=== PATIENT | female | born 1975 | race Caucasian/White ===

== ENCOUNTER 2019-08-29 16:15 | Outpatient (CLI) | payer OTHER, SELFPAY ==
--- NOTE | ~2019-08-29 | CT_ITS ---
EXAMINATION: CT BRAIN W/O DATE: 08/29/2019 16:49 INDICATION: Dizziness. Imbalance. TECHNIQUE: Computed tomography (CT) of the head was performed without intravenous contrast. The dose- length product was 605.33 mGy-cm. The mA was adjusted according to patient size. Iterative reconstruction technique was employed. COMPARISON: No prior studies for comparison. FINDINGS: Normal brain parenchymal volume for age. Normal leiva-white differentiation. No acute intrac ranial hemorrhage, infarction, mass or mass effect. No ventriculomegaly or midline shift. Midline sagittal images demonstrate a normal corpus callosum, c raniovertebral junction and sella turcica. Basilar cisterns are patent. Paranasal sinuses and mastoids are pneumatized. Small mucous retention cyst left maxillary sinus. No depressed skull fractures. IMPRESSION: 1. No acute intracranial abnormality. Reviewed, dictated and finalized at location A. GRADER
== END 2019-08-29 16:16 | disposition home or self-care (01) ==
PROVIDERS: PCP Internal Medicine; Visit Provider Internal Medicine
DX: R42 Dizziness and giddiness (principal); R26.89 Other abnormalities of gait and mobility
CPT/HCPCS: 70450

== ENCOUNTER 2020-01-29 08:36 | Outpatient (CLI) | payer OTHER, SELFPAY ==
--- NOTE | 2020-01-29 08:49 | ECHO_ITS ---
Patient Info Name: Nasra Bullock Age: 44 years : 1975 Gender: Female Ht: 64 in Wt: 300 lbs BSA: 2.56 m2 HR: 116 bpm BP: 127 / 95 mmHg Heart Rhythm: Tachycardia Technical Quality: Fair Exam Date: 01/29/2020 8:57 AM Exam Location: [facility] Patient Status: Outpatient Admit Date: 01/29/2020 Staff Ordering Physician: Alaina Guajardo MD Manager Of Manufacturing: Stacey Lni RCS Attending Provider: Alaina Guajardo MD Referring Physician: Bennett YARBROUGH; Exam Type: CA echo doppler color flow Study Info Indications - sob Complete two-dimensional, color flow and Doppler transthoracic echocardiogram is performed. Summary 1. Left ventricular systolic function is hyperdynamic, estimated at >70%. 2. There is mildly increased left ventricular wall thickness. 3. The left ventricular diastolic function is grade I diastolic dysfunction. 4. There is trace tricuspid valve regurgitation. 5. No pulmonary hypertension, estimated pulmonary arterial systolic pressure is 23 mmHg. Left Ventricle Left ventricular chamber dimension is normal. Left ventricular systolic function is hyperdynamic, estimated at >70%. There is mildly increased left ventricular wall thickness. Left ventricular septal wall motion is normal. The left ventricular diastolic function is grade I diastolic dysfunction. E/e' 8.0 is normal. Right Ventricle Right ventricular chamber dimension is normal. Right ventricular systolic function is normal. Left Atria Left atrial chamber dimension is normal. Right Atria Right atrial chamber dimension is normal. Aortic Valve The aortic valve is not well visualized. There is no aortic valve sclerosis. There is no aortic valve stenosis. There is no aortic valve regurgitation. Pulmonic Valve The pulmonic valve is not well visualized. There is no pulmonic valve stenosis. There is no pulmonic regurgitation. Mitral Valve The mitral valve has normal leaflets. There is no mitral valve stenosis. There is no mitral valve regurgitation. Tricuspid Valve The tricuspid valve leaflets are normal. There is no significant tricuspid valve stenosis. There is trace tricuspid valve regurgitation. No pulmonary hypertension, estimated pulmonary arterial systolic pressure is 23 mmHg. Pericardium/Pleural The pericardium appears normal. There is no pericardial effusion. Aorta The aortic root size at the sinus of Valsalva is normal. The prox ascending aorta size is normal. Left Ventricular Outflow Tract Name Value Normal LVOT 2D LVOT Diameter 2.0 cm LVOT Doppler LVOT Peak Gradient 6 mmHg LVOT Mean Gradient 4 mmHg LVOT VTI 22 cm LVOT VTI/AV VTI Ratio 0.9 LVOT Stroke Volume 73 ml LVOT CO 19.1 l/min LVOT CI 7.5 l/min/m2 Pulmonic Valve Name Value Normal ----
--- NOTE | 2020-01-31 13:47 | WPDSIXMINUTE ---
Six Minute Walk Six Minute Walk: DOS: 01/29/2020 REQUESTING: Dr Guajardo REASON FOR TESTING: shortness of breath SIX MINUTE WALK This test was conducted per ATS guidelines. The initial heart rate was 122, saturation was 96% on room air. The patient walked 1100 ft, 335 m with a minimum saturation of 92%. At the end of the test recovery saturation was 97%. Maximum heart rate was 175. She did not stop to rest during the test. IMPRESSION: Minimum saturation 92% during this 6 minute walk. She does not require oxygen with exertion. Dostance walked is adequate for her age. Patient has a resting tachycardia 122 which increased to 175 during the walk.
--- NOTE | 2020-01-31 13:52 | WPDPFTINT ---
PFT Interpretation PFT Interpretation: DOS: 01/29/2020 REQUESTING: Dr Guajardo REASON FOR TESTING: Shortness of breath PULMONARY FUNCTION TESTS The results are reliable and reproducible. Spirometry: FEV1 112%, 2.92 L. FVC 111%. FEV1/FVC % is 78%. All these values are normal. . [id number]% is 82%. There is no response to bronchodilator administration. Lung volumes: TLC 106%. RV 90%. Raw 87%, all values are normal. Diffusion: DLCO 73%, mildly decreased. Flow volume loop: Normal. IMPRESSION: Mild decreased in diffusion, otherwise normal test. Alaina Guajardo MD
== END 2020-01-29 08:37 | disposition home or self-care (01) ==
LOC: ANHCARD 08:37
PROVIDERS: PCP Internal Medicine; Visit Provider Internal Medicine Critical Care Medicine
DX: R06.02 Shortness of breath (principal); J45.909 Unspecified asthma, uncomplicated
CPT/HCPCS: 93306; 94060; 94618; 94726; 94729

== ENCOUNTER 2020-10-14 09:46 | Outpatient (CLI) | payer OTHER, SELFPAY | END 2020-10-14 09:47 | LOC: ANHCOVIDVC 09:46 | PROVIDERS: PCP Internal Medicine | DX: Z23 Encounter for immunization (principal) | CPT/HCPCS: 0001A; 91300 ==

== ENCOUNTER 2020-11-04 09:46 | Outpatient (CLI) | payer OTHER, SELFPAY | END 2020-11-04 09:47 | disposition home or self-care (01) | LOC: ANHCOVIDVC 09:46 | PROVIDERS: PCP Internal Medicine | DX: Z23 Encounter for immunization (principal) | CPT/HCPCS: 0002A; 91300 ==